=== PATIENT | male | born 1980 | race Caucasian/White ===

== ENCOUNTER 2024-03-27 22:24 | Emergency (ER) | payer MEDICAID ==
[~2024-03-27] VITALS: Ht 170.2 cm; Wt 72.6 kg
[2024-03-27 22:49] VITALS: BP_SYST 128; PULSE 81; RESP 18; TEMP 98.1; O2SAT 99
[2024-03-27] MEDS ORDERED: CEPH250C PO (22:57)
[2024-03-27] MEDS: DIPHTH,PERTUSS(ACELL),TET VAC 0.5 ML VIAL (Tdap) I.M. ONE (23:23)
== END 2024-03-27 23:20 | disposition home or self-care (01) ==
LOC: SED 22:24
DX: S91.332A Puncture wound without foreign body, left foot, initial encounter (principal); Z23 Encounter for immunization; W45.0XXA Nail entering through skin, initial encounter; Y93.89 Activity, other specified; Y92.89 Other specified places as the place of occurrence of the external cause; Y99.8 Other external cause status
CPT/HCPCS: 90715; 99283